=== PATIENT | female | born 1995 | race Caucasian/White ===

== ENCOUNTER 2017-02-14 11:56 | Emergency (ER) | payer OTHER ==
[2017-02-14 13:26] VITALS: BP 114/72
--- NOTE | 2017-02-14 14:11 | UC ---
Complaint Female HPI - HPI Summary HPI Summary: Pt reports that she began with urinary symptoms of frequency, urgency and dysuria on 02/12/17. Pt woke this morning with hematuria. Has history of kidney stones. Pt denies back pain. - History Of Current Complaint Chief Complaint: UCGU Stated Complaint: BLOOD IN URINE Time Seen by Provider: 02/14/17 14:04 Hx Obtained From: Patient Hx Last Menstrual Period: ~01/18/17 ?: No Onset/Duration: Sudden Onset, Lasting Days Timing: Constant Severity Initially: Mild Severity Currently: Mild Character: Dull, Burning Aggravating Factor(s): Urination Associated Signs And Symptoms: Positive: Negative - Allergies/Home Medications Allergies/Adverse Reactions: Allergies Allergy/AdvReac Type Severity Reaction Status Date / Time Latex Allergy Swelling Verified 02/14/17 13:22 Home Medications: Home Medications Acetaminophen [Acetaminophen Extra Stren] 1,000 mg PO Q6H PRN 02/14/17 [History Confirmed 02/14/17] PMH/Surg Hx/FS Hx/Imm Hx Previously Healthy: Yes Endocrine History Of: Denies: Diabetes, Thyroid Disease Respiratory History Of: Denies: COPD, Asthma, Pneumonia, Pulmonary Embolism GI/ History Of: Reports: Kidney Stones Denies: Ulcer, Gastrointestinal Bleed, Gall Bladder Disease Psychological History Of: Denies: Anxiety, Depression, Bipolar Disorder, Schizophrenia Cancer History Of: Denies: Lung Cancer Other History Of: Negative For: Anticoagulant Therapy - Surgical History Surgical History: None - Family History Known Family History: Positive: Other - positive [facility] for URI - Social History Alcohol Use: Rare Substance Use Type: None Smoking Status (MU): Light Every Day Tobacco Smoker Household Exposure Type: Cigarettes - Immunization History Most Recent Influenza Vaccination: 2013 Most Recent Tetanus Shot: utd Most Recent Pneumonia Vaccination: does not recieve Review of Systems Constitutional: Negative Skin: Negative Eyes: Negative ENT: Negative Respiratory: Negative Cardiovascular: Negative Gastrointestinal: Negative Genitourinary: Dysuria, Hematuria, Frequency, Urgency Motor: Negative Neurovascular: Negative Musculoskeletal: Negative Neurological: Negative Psychological: Negative All Other Systems Reviewed And Are Negative: Yes Physical Exam Triage Information Reviewed: Yes Appearance: Well-Appearing Vital Signs: Initial Vital Signs Temp 97.9 F 02/14/17 13:19 Pulse 70 02/14/17 13:19 Resp 16 02/14/17 13:19 BP 114/72 02/14/17 13:19 Pulse Ox 100 02/14/17 13:19 Eye Exam: Normal Neck exam: Normal Respiratory Exam: Normal Cardiovascular Exam: Normal Abdominal Exam: Normal Musculoskeletal Exam: Normal Neurological Exam: Normal Psychological Exam: Normal Skin Exam: Normal Complaint Female Dx - Differential Dx/Diagnosis Differential Diagnosis/HQI/PQRI: Urinary Tract Infection, Other - kidney stone Provider Diagnoses: UTI. Hematuria Discharge - Discharge Plan Condition: Stable Disposition: HOME Prescriptions: Cephalexin CAP* [Keflex 500 CAP*] 500 mg PO Q8H #15 cap Phenazopyridine TAB* [Pyridium 100 mg TAB*] 100 mg PO TID #6 tab Patient Education Materials: Urinary Tract Infection in Women (ED), Hematuria ( ED) Referrals: [facility]IAN REFERRAL [Outside] No Primary Care Phys,NOPCP [Primary Care Provider] -
[2017-02-14] MEDS ORDERED: Phenazopyridine TAB* 100 MG PO ONE (14:13)
[2017-02-14] MEDS ORDERED: Cephalexin CAP* 500 MG PO ONE (14:13)
== END 2017-02-14 14:20 | disposition home or self-care (01) ==
LOC: UCCORT 11:56
DX: N39.0 Urinary tract infection, site not specified (principal); R31.9 Hematuria, unspecified; Z32.02 Encounter for pregnancy test, result negative; Z87.442 Personal history of urinary calculi; F17.210 Nicotine dependence, cigarettes, uncomplicated
CPT/HCPCS: 81003; 84702; 87077; 87086; 87186; 99212; A9270-GY; G0463

== ENCOUNTER 2018-03-03 18:18 | Emergency (ER) | payer OTHER ==
--- NOTE | 2018-03-03 19:53 | ED ---
Neck Pain - HPI Summary HPI Summary: Patient states she woke up with pain in right neck 3 days ago which now has radiated up into jaw on and ear. Denies trauma, fever, CARTY, trismus, neck stiffness, dry mouth, cough, sore throat, CP, SOB, N/V/D, abdomen pain, change in urinary BM. Medical history is none. Was advised by dentist to come here to the ED for initial evaluation. Has appointment with dentist tomorrow 9:30 AM. No history of dental issues - History of Current Complaint Chief Complaint: EDNeckComplaint Stated Complaint: NECK & JAW PAIN Time Seen by Provider: 03/03/18 19:28 Hx Obtained From: Patient Hx Last Menstrual Period: ~01/18/17 Onset/Duration Of Injury/Symptoms: Days Timing: Constant Onset/Duration: Gradual Onset Severity Initially: Mild Severity Currently: Moderate Pain Intensity: 6 Pain Scale Used: 0-10 Numeric Character: Sharp Associated Signs & Symptoms: Positive: Swelling. Negative: Redness, Bruising, Fever, Nuchal Rigity, Headache, Paresthesia - Allergies/Home Medications Allergies/Adverse Reactions: Allergies Allergy/AdvReac Type Severity Reaction Status Date / Time latex Allergy Rash Verified 03/03/18 19:34 Home Medications: Home Medications NK [No Home Medications Reported] 03/03/18 [History Confirmed 03/03/18] PMH/Surg Hx/FS Hx/Imm Hx Endocrine/Hematology History: Reports: Hx Anemia - borderline anemic Denies: Hx Anticoagulant Therapy, Hx Blood Disorders, Hx Blood Transfusions, Hx Bone Marrow Disease, Hx Diabetes, Hx Systemic Lupus Erythematosus, Hx Sickle Cell Disease, Hx Thyroid Disease, Hx Unexplained Bleeding, Other Endocrine/ Hematological Disorders Respiratory History: Denies: Hx Asthma, Hx Chronic Bronchitis, Hx Chronic Obstructive Pulmonary Disease (COPD), Hx Cystic Fibrosis, Hx Lung Cancer, Hx Pleural Effusion, Hx Pneumonia, Hx Pulmonary Edema, Hx Pulmonary Embolism, Hx Seasonal Allergies, Hx Sleep Apnea, Other Respiratory Problems/Disorders GI History: Denies: Hx Cirrhosis, Hx Crohn's Disease, Hx Diverticulosis, Hx Gall Bladder Disease, Hx Gastroesophageal Reflux Disease, Hx Gastrointestinal Bleed, Hx Hiatal Hernia, Hx Irritable Bowel, Hx Jaundice, Hx Obstructive Bowel, Hx Ileostomy, Hx Ulcer, Other GI Disorders History: Reports: Hx Kidney Stones Denies: Hx Benign Prostatic Hyperplasia, Hx Chronic Renal Failure, Hx Kidney Infection, Other Problems/Disorders Musculoskeletal History: Denies: Hx Arthritis, Hx Bursitis, Hx Tendonitis, Other Musculoskeletal History Sensory History: Reports: Hx Contacts or Glasses Denies: Hx Hearing Aid Opthamlomology History: Reports: Hx Contacts or Glasses Psychiatric History: Denies: Hx Anxiety, Hx Attention Deficit Hyperactivity Disorder, Hx Eating Disorder, Hx Depression, Hx Panic Disorder, Hx Post Traumatic Stress Disorder, Hx Inpatient Treatment, Hx Community Mental Health Tx, Hx Schizophrenia, Hx Bipolar Disorder, Hx Suicide Attempt, Hx of Violent Episodes Against Others, Hx Substance Abuse, Other Psychiatric Issues/Disorders - Surgical History Hx Anesthesia Reactions: No Infectious Disease History: No Infectious Disease History: Denies: Hx Hepatitis, Hx Tuberculosis, Traveled Outside the [place] in Last 30 Days - Family History Known Family History: Positive: Other - positive [facility] for URI - Social History Alcohol Use: Rare Substance Use Type: Reports: None Smoking Status (MU): Light Every Day Tobacco Smoker Review of Systems Constitutional: Negative Eyes: Negative Positive: Ear Ache, Other Cardiovascular: Negative Respiratory: Negative Gastrointestinal: Negative Genitourinary: Negative Musculoskeletal: Negative Skin: Negative Neurological: Negative Psychological: Normal All Other Systems Reviewed And Are Negative: Yes Physical Exam Triage Information Reviewed: Yes Vital Signs On Initial Exam: Initial Vitals Temp Pulse Resp BP Pulse Ox 97.9 F 91 20 107/84 100 03/03/18 18:24 03/03/18 18:24 03/03/18 18:24 03/03/18 18:24 03/03/18 18:24 Vital Signs Reviewed: Yes Appearance: Positive: Well-Appearing Skin: Positive: Warm Head/Face: Positive: Normal Head/Face Inspection Eyes: Positive: Normal ENT: Positive: Pharynx normal, TMs normal, Uvula midline. Negative: Tonsillar swelling, Tonsillar exudate, Trismus, Muffled voice, Hoarse voice, Sinus tenderness Dental: Positive: Cervical Lymphadenopathy. Negative: Gross Decay/Caries @, Dental Fracture @, Abscess @, Cellulitis @ Neck: Positive: Enlarged Nodes @ Respiratory/Lung Sounds: Positive: Clear to Auscultation Cardiovascular: Positive: Normal Abdomen Description: Positive: Nontender Musculoskeletal: Positive: Normal Neurological: Positive: Normal Psychiatric: Positive: Normal AVPU Assessment: Alert - [place] Coma Scale Best Eye Response: 4 - Spontaneous Best Motor Response: 6 - Obeys Commands Best Verbal Response: 5 - Oriented Coma Scale Total: 15 Diagnostics - Vital Signs Vital Signs Temp Pulse Resp BP Pulse Ox 03/03/18 18:24 97.9 F 91 20 107/84 100 - Laboratory Lab Statement: Any lab studies that have been ordered have been reviewed, and results considered in the medical decision making process. Neck Course/Dx - Course Course Of Treatment: Vital signs unremarkable. Exam unremarkable except Right- sided parotid gland swelling. Negative trismus/oral abscess/neck abscess. Strep negative mono negative. We'll recommend Tylenol and ibuprofen for pain control, and lemon drops for possible salivary gland stone. - Diagnoses Provider Diagnoses: Parotitis, acute Discharge - Sign-Out/Discharge Documenting (check all that apply): Discharge/Admit/Transfer - Discharge Plan Condition: Stable Disposition: HOME Patient Education Materials: Sialoadenitis (ED), Mumps in Adults (ED) Referrals: Luna Bella PA [Primary Care Provider] - Additional Instructions: Try lemon drops to see if and symptoms improved. Use Tylenol and ibuprofen for pain control. Follow-up with primary care. Return to the ED for any new or worsening symptoms - Billing Disposition and Condition Condition: STABLE Disposition: HOME
[2018-03-03 21:13] VITALS: BP 122/69
== END 2018-03-03 21:10 | disposition home or self-care (01) ==
LOC: ED 18:18
DX: K11.21 Acute sialoadenitis (principal); F17.200 Nicotine dependence, unspecified, uncomplicated
CPT/HCPCS: 36415; 86308; 87651; 99283

== ENCOUNTER 2018-11-13 19:18 | Emergency (ER) | payer MEDICAID, OTHER ==
[2018-11-13] MEDS ORDERED: predniSONE TAB* 20 MG PO ONE (21:14)
--- NOTE | 2018-11-13 21:17 | ED ---
Allergic Reaction/Systemic - HPI Summary HPI Summary: Patient with history of latex allergy complains of latex contact on dorsal surface of left hand with subsequent itching and redness to the area. Symptoms are somewhat is resolved by time of exam. Denies any fever, cough, sore throat , CP, oral swelling, SOB, N/V/D, abdominal pain, change in urine, change in BM. Medical history is none. - History of Current Complaint Chief Complaint: EDAllergicReaction Time Seen by Provider: 11/13/18 21:07 Hx Obtained From: Patient Hx Last Menstrual Period: ~01/18/17 Onset/Duration: Sudden Onset Timing: Constant Severity Currently: None Pain Intensity: 0 Pain Scale Used: 0-10 Numeric Location: Discrete @ Character: Pruritus, Hives Aggravating Factor(s): Nothing Alleviating Factor(s): Nothing Associated Signs And Symptoms: Positive: Rash - Allergies/Home Medications Allergies/Adverse Reactions: Allergies Allergy/AdvReac Type Severity Reaction Status Date / Time [place] And Derivatives Allergy Hives Verified 11/13/18 19:25 feathers Allergy Swelling Verified 11/13/18 19:25 kiwi Allergy Hives Verified 11/13/18 19:25 lactose Allergy Diarrhea Verified 11/13/18 19:25 latex Allergy Rash Verified 03/03/18 19:34 marguerite Allergy Hives Verified 11/13/18 19:25 pineapple Allergy Anaphylatic Verified 11/13/18 19:25 Shock PMH/Surg Hx/FS Hx/Imm Hx Endocrine/Hematology History: Reports: Hx Anemia - borderline anemic Denies: Hx Anticoagulant Therapy, Hx Blood Disorders, Hx Blood Transfusions, Hx Bone Marrow Disease, Hx Diabetes, Hx Systemic Lupus Erythematosus, Hx Sickle Cell Disease, Hx Thyroid Disease, Hx Unexplained Bleeding, Other Endocrine/ Hematological Disorders Respiratory History: Denies: Hx Asthma, Hx Chronic Bronchitis, Hx Chronic Obstructive Pulmonary Disease (COPD), Hx Cystic Fibrosis, Hx Lung Cancer, Hx Pleural Effusion, Hx Pneumonia, Hx Pulmonary Edema, Hx Pulmonary Embolism, Hx Seasonal Allergies, Hx Sleep Apnea, Other Respiratory Problems/Disorders GI History: Denies: Hx Cirrhosis, Hx Crohn's Disease, Hx Diverticulosis, Hx Gall Bladder Disease, Hx Gastroesophageal Reflux Disease, Hx Gastrointestinal Bleed, Hx Hiatal Hernia, Hx Irritable Bowel, Hx Jaundice, Hx Obstructive Bowel, Hx Ileostomy, Hx Ulcer, Other GI Disorders History: Reports: Hx Kidney Stones Denies: Hx Benign Prostatic Hyperplasia, Hx Chronic Renal Failure, Hx Kidney Infection, Other Problems/Disorders Musculoskeletal History: Denies: Hx Arthritis, Hx Bursitis, Hx Tendonitis, Other Musculoskeletal History Sensory History: Reports: Hx Contacts or Glasses Denies: Hx Hearing Aid Opthamlomology History: Reports: Hx Contacts or Glasses Neurological History: Denies: Hx Developmental Delay Psychiatric History: Denies: Hx Anxiety, Hx Attention Deficit Hyperactivity Disorder, Hx Eating Disorder, Hx Depression, Hx Panic Disorder, Hx Post Traumatic Stress Disorder, Hx Inpatient Treatment, Hx Community Mental Health Tx, Hx Schizophrenia, Hx Bipolar Disorder, Hx Suicide Attempt, Hx of Violent Episodes Against Others, Hx Substance Abuse, Other Psychiatric Issues/Disorders - Surgical History Hx Anesthesia Reactions: No Infectious Disease History: No Infectious Disease History: Denies: Hx Hepatitis, Hx Tuberculosis, Traveled Outside the [place] in Last 30 Days - Family History Known Family History: Positive: Other - positive [facility] for URI - Social History Alcohol Use: Rare Substance Use Type: Reports: None Smoking Status (MU): Light Every Day Tobacco Smoker Review of Systems Constitutional: Negative Eyes: Negative ENT: Negative Cardiovascular: Negative Respiratory: Negative Gastrointestinal: Negative Genitourinary: Negative Musculoskeletal: Negative Positive: Rash Neurological: Negative Psychological: Normal All Other Systems Reviewed And Are Negative: Yes Physical Exam - Summary Physical Exam Summary: Red Blanchable rash to back of left hand. No vesicles. No extra warmth. Full range of motion of fingers and wrist. No pain with palpation. Triage Information Reviewed: Yes Vital Signs On Initial Exam: Initial Vitals Temp Pulse Resp BP Pulse Ox 98.7 F 78 16 115/79 99 11/13/18 19:21 11/13/18 19:21 11/13/18 19:21 11/13/18 19:21 11/13/18 19:21 Vital Signs Reviewed: Yes Appearance: Positive: Well-Appearing Skin: Positive: Warm Head/Face: Positive: Normal Head/Face Inspection Eyes: Positive: Normal ENT: Positive: Normal ENT inspection Neck: Positive: Supple Respiratory/Lung Sounds: Positive: Clear to Auscultation Cardiovascular: Positive: Normal Abdomen Description: Positive: Nontender Musculoskeletal: Positive: Normal Neurological: Positive: Normal Psychiatric: Positive: Normal AVPU Assessment: Alert - [place] Coma Scale Best Eye Response: 4 - Spontaneous Best Motor Response: 6 - Obeys Commands Best Verbal Response: 5 - Oriented Coma Scale Total: 15 Diagnostics - Vital Signs Vital Signs Temp Pulse Resp BP Pulse Ox 11/13/18 19:21 98.7 F 78 16 115/79 99 - Laboratory Lab Statement: Any lab studies that have been ordered have been reviewed, and results considered in the medical decision making process. Allergic Reaction Course/Dx - Course Course Of Treatment: Patient with history of latex allergy complains of latex contact on dorsal surface of left hand with subsequent itching and redness to the area. Symptoms are somewhat is resolved by time of exam. Denies any fever , cough, sore throat, CP, oral swelling, SOB, N/V/D, abdominal pain, change in urine, change in BM. Medical history is none. Physical exam:Red Blanchable rash to back of left hand. No vesicles. No extra warmth. Full range of motion of fingers and wrist. No pain with palpation. Vital signs within normal limits. Resolving abdominal exam. Patient has tolerated running out of her refused Benadryl. Accepted prednisone 40 mg PO. Patient will take Benadryl when she gets home if necessary - Diagnoses Provider Diagnoses: Allergic reaction Discharge - Sign-Out/Discharge Documenting (check all that apply): Patient Departure - Discharge Plan Condition: Stable Disposition: HOME Patient Education Materials: Urticaria (ED), General Allergic Reaction (ED) Forms: *Gen. Provider Communication Referrals: Luna Bella PA [Primary Care Provider] - Additional Instructions: Take Benadryl when you are done driving tonight if symptoms persist. Return to the ER for any new or worsening symptoms. - Billing Disposition and Condition Condition: STABLE Disposition: Home
[2018-11-13 22:23] VITALS: BP 114/67
== END 2018-11-13 21:35 | disposition home or self-care (01) ==
LOC: ED 19:18
DX: T65.811A Toxic effect of latex, accidental (unintentional), initial encounter (principal); L50.9 Urticaria, unspecified; Z91.040 Latex allergy status; Y92.9 Unspecified place or not applicable; F17.200 Nicotine dependence, unspecified, uncomplicated
CPT/HCPCS: 99282; J7512